=== PATIENT | female | born 1995 | race American Indian/Alaskan Native ===

== ENCOUNTER 2017-10-11 00:33 | Emergency (ER) | payer BC ==
[~2017-10-11] VITALS: Ht 160 cm; Wt 75.0 kg
[~2017-10-11 00:33] MED LIST: CYCL-1 PO; HYDR-3964 PO; NO HOME MEDS
[2017-10-11] MEDS ORDERED: ketorolac trometh. 30mg/ml inj. IM ONE (01:00)
[2017-10-11 01:24] LABS: URINE HCG NEGATIVE (NEG)
[2017-10-11 01:35] LABS: CLARITY,URINE CLEAR (Clear); COLOR,URINE YELLOW (Yellow); GLUCOSE, URINE NEGATIVE (Neg); KETONES,URINE NEGATIVE (Neg); LEUKOCYTE ESTERASE ,URINE NEGATIVE (Neg); NITRITES, URINE NEGATIVE (Neg); OCCULT BLOOD,URINE NEGATIVE (Neg); PH,URINE 7.5 (4.8-8.0); PROTEIN,URINE NEGATIVE (Neg); UROBILINOGEN,URINE 0.2 E.U/dL (0.2-1.0)
[2017-10-11 01:41] LABS: UA COLLECTION TYPE CLN CATCH MIDSTREAM
[2017-10-11 02:24] VITALS: BP 116/75
== END 2017-10-11 02:25 | disposition home or self-care (01) ==
LOC: ER 00:34
DX: R10.9 Unspecified abdominal pain (principal); Z86.73 Personal history of transient ischemic attack (TIA), and cerebral infarction without residual deficits
CPT/HCPCS: 81003; 81025; 96372; 99284; J1885

== ENCOUNTER 2019-03-23 16:29 | Emergency (ER) | payer BC ==
[~2019-03-23] VITALS: Ht 160 cm; Wt 79.0 kg
[2019-03-23 17:24] LABS: BASOPHILS # (AUTO) 0.1 X10'3 (0-0.2); BASOPHILS % (AUTO) 0.5 % (0-1); EOSINOPHILS # (AUTO) 0.1 X10'3 (0-0.9); EOSINOPHILS % (AUTO) 0.5 % (0-6); HEMATOCRIT 46.4 % (35.0-45.0); HEMOGLOBIN 16.2 g/dl (12.0-16.0); LYMPHOCYTES % (AUTO) 18.2 % (21-51); MEAN CORPUSCULAR HEMOGLOBIN 31.5 PG (27.0-31.0); MEAN CORPUSCULAR HGB CONC 34.9 g/dL (33.0-36.5); MEAN CORPUSCULAR VOLUME 90.3 FL (78-98); MEAN PLATELET VOLUME 10.6 FL (7.4-10.4); MONOCYTES # (AUTO) 0.4 X10'3 (0-0.9); MONOCYTES % (AUTO) 3.8 % (2-12); NEUTROPHILS # (AUTO) 8.6 X10'3 (1.8-7.7); PLATELET COUNT 182 X10'3 (140-440); RED BLOOD COUNT 5.14 X10'6 (4.20-5.60); RED CELL DISTRIBUTION WIDTH 12.9 % (11.5-14.5); WHITE BLOOD COUNT 11.2 X10'3 (4.5-11.0)
[2019-03-23 17:35] LABS: PARTIAL THROMBOPLASTIN TIME 30 SECONDS (22-32)
[2019-03-23 17:38] LABS: ALANINE AMINOTRANSFERASE 45 U/L (12-78); ALBUMIN 4.1 G/DL (3.4-5.0); ALBUMIN/GLOBULIN RATIO 1.1 (1.1-1.5); ALKALINE PHOSPHATASE 111 IU/L (46-116); ANION GAP 11 (8-16); ASPARTATE AMINO TRANSFERASE 18 U/L (10-37); BILIRUBIN,TOTAL 0.5 MG/DL (0.1-1.0); BLOOD UREA NITROGEN 17 MG/DL (7-18); BUN/CREATININE RATIO 26.6 (6.6-38.0); CALCIUM 8.9 MG/DL (8.5-10.1); CHLORIDE 104 MMOL/L (99-107); CREATININE 0.64 MG/DL (0.40-0.90); GLUCOSE 126 MG/DL (70-104); POTASSIUM 3.3 MMOL/L (3.5-5.1); SODIUM 139 MMOL/L (135-145); TOTAL CARBON DIOXIDE 24.5 MMOL/L (24-32); eGFR > 90 ML/MIN
[2019-03-23 18:20] LABS: LARGE PLATELETS FEW; PLATELET ESTIMATE NORMAL
[2019-03-23 18:33] VITALS: BP 122/87
== END 2019-03-23 20:39 | disposition home or self-care (01) ==
LOC: ER 16:30
DX: R00.2 Palpitations (principal); R06.02 Shortness of breath; R42 Dizziness and giddiness; F41.9 Anxiety disorder, unspecified; Z90.49 Acquired absence of other specified parts of digestive tract; Z98.890 Other specified postprocedural states; Z79.899 Other long term (current) drug therapy
CPT/HCPCS: 36415; 71045; 80053; 84484; 85025; 85610; 85730; 93005; 99284

== ENCOUNTER 2021-09-17 16:58 | Inpatient (IN) | payer BC ==
[~2021-09-17] VITALS: Ht 160 cm; Wt 74.5 kg
[2021-09-17 17:58] LABS: BASOPHILS # (AUTO) 0.1 X10'3 (0-0.2); BASOPHILS % (AUTO) 1.4 % (0-1); EOSINOPHILS # (AUTO) 0.1 X10'3 (0-0.9); EOSINOPHILS % (AUTO) 2.1 % (0-6); HEMOGLOBIN 13.9 g/dl (12.0-16.0); LYMPHOCYTES # (AUTO) 1.7 X10'3 (1.1-4.8); LYMPHOCYTES % (AUTO) 34.4 % (21-51); MEAN CORPUSCULAR HEMOGLOBIN 29.8 PG (27.0-31.0); MEAN CORPUSCULAR HGB CONC 34.6 g/dL (33.0-36.5); MEAN CORPUSCULAR VOLUME 86.1 FL (78-98); MEAN PLATELET VOLUME 9.5 FL (7.4-10.4); MONOCYTES # (AUTO) 0.3 X10'3 (0-0.9); MONOCYTES % (AUTO) 5.6 % (2-12); NEUTROPHILS # (AUTO) 2.7 X10'3 (1.8-7.7); NEUTROPHILS % (AUTO) 56.5 % (42-75); PLATELET COUNT 181 X10'3 (140-440); RED BLOOD COUNT 4.65 X10'6 (4.20-5.60); RED CELL DISTRIBUTION WIDTH 17.6 % (11.5-14.5); WHITE BLOOD COUNT 4.9 X10'3 (4.5-11.0)
[2021-09-17 18:04] LABS: D-DIMER 0.67 MG/L FEU (0-0.50)
[2021-09-17 18:07] LABS: ALANINE AMINOTRANSFERASE 89 U/L (12-78); ALBUMIN 3.8 G/DL (3.4-5.0); ALKALINE PHOSPHATASE 350 IU/L (46-116); ANION GAP 11 (8-16); ASPARTATE AMINO TRANSFERASE 25 U/L (10-37); BLOOD UREA NITROGEN 11 MG/DL (7-18); CALCIUM 9.5 MG/DL (8.5-10.1); CHLORIDE 102 MMOL/L (99-107); CREATININE 0.58 MG/DL (0.40-0.90); GLUCOSE 93 MG/DL (70-104); POTASSIUM 4.5 MMOL/L (3.5-5.1); SODIUM 139 MMOL/L (135-145); TOTAL CARBON DIOXIDE 26.1 MMOL/L (24-32); TOTAL PROTEIN 7.8 G/DL (6.4-8.2); eGFR > 90 ML/MIN
[2021-09-17 18:47] LABS: C-REACTIVE PROTEIN 2.24 MG/DL (0.0-0.5)
[2021-09-17 18:55] LABS: APTT 32 SECONDS (22-32)
[2021-09-17] MEDS ORDERED: HYDROmorphone 1 mg/ml syringe IV ONE (19:30)
[2021-09-17] MEDS ORDERED: heparin 10,000 units/1 ML INJ IV PRN (19:30)
[2021-09-17] MEDS ORDERED: heparin 25,000 UNIT/250ml bag 250 ML IV SCH (19:30)
[2021-09-17] MEDS ORDERED: ondansetron/PF 4mg/2ml inj IV ONE (19:30)
[2021-09-17] MEDS ORDERED: heparin 10,000 units/1 ML INJ IV ONE ×2 (19:30→19:35)
[2021-09-17] MEDS ORDERED: FERR-39 PO (19:37)
[2021-09-17] MEDS ORDERED: iohexol 300mg/ml 100ml inj. ONE (21:05)
[2021-09-17 21:17] LABS: LIPASE 202 U/L (73-393)
[2021-09-17] MEDS ORDERED: HYDROmorphone inj. 0.5 MG/0.5 ML DISP.SYRIN IV PRN (23:25)
[2021-09-17] MEDS ORDERED: ondansetron/PF 4mg/2ml inj IV PRN (23:25)
[2021-09-17] MEDS ORDERED: mag hydrox/Alum hydrox/simeth 30ml oral suspension PO PRN (23:25)
[2021-09-17] MEDS ORDERED: acetaminophen 325mg tablet PO PRN (23:25)
[2021-09-17] MEDS ORDERED: CADD PCA waste documentation MC PRN (23:25)
[2021-09-17] MEDS ORDERED: naloxone 0.4 mg/ml inj IV PRN (23:25)
[2021-09-17] MEDS ORDERED: magnesium 4gm in 100ml NS 100 ML IV PRN (23:25)
[2021-09-17] MEDS ORDERED: magnesium Cl slow-release 64mg tablet PO PRN (23:25)
[2021-09-17] MEDS ORDERED: potassium CL 10mEq/100ml bag 100 ML IV PRN (23:25)
[2021-09-17] MEDS ORDERED: magnesium hydroxide 30ml (MOM) UD suspension PO PRN (23:25)
[2021-09-17] MEDS ORDERED: potassium Cl 20 mEq SR tablet PO PRN ×2 (23:25)
[2021-09-17] MEDS ORDERED: magnesium 2GM in 50ml NS 50 ML IV PRN (23:25)
[2021-09-18 00:18] LABS: MAGNESIUM 1.9 MG/DL (1.5-2.4); POTASSIUM 4.1 MMOL/L (3.5-5.1)
[2021-09-18] MEDS: HYDROmorph./NS 0.2 mg/ml CADD 100 ML IV SCH ×3 (00:57→05:00)
[2021-09-18] MEDS ORDERED: normal saline 500ml IV soln 500 ML IV SCH (03:30)
[2021-09-18] MEDS ORDERED: docusate sod 100mg capsule PO SCH (08:00)
[2021-09-18] MEDS ORDERED: K and/or MAG REPLACEMENT MC SCH (08:00)
[2021-09-18] MEDS ORDERED: ferrous sulfate 325mg tablet PO SCH (08:00)
--- NOTE | 2021-09-18 08:29 | NUR ---
RECEIVED TELEPHONE VO FROM DR. OLIVERA: STOP HEPARIN START ELIQUIS 10MG PO BID NORCO 10MG TAKE 2 TABS PO Q 4 HRS PRN PAIN. WHEN ORAL NORCO STARTED DISCONTINUE DILAUDID [employer] DILAUDID 0.5MG IV Q 4 HOURS PRN BREAK THROUGH PAIN NOT RELIEVED BY NORCO
[2021-09-18] MEDS ORDERED: HYDROcodone/acetaminophen 10/325mg tab PO PRN (08:55)
[2021-09-18] MEDS ORDERED: apixaban 5mg tablet PO SCH (08:55)
[2021-09-18] MEDS ORDERED: HYDROmorphone inj. 0.5 MG/0.5 ML DISP.SYRIN IV PRN (08:55)
[2021-09-18 08:58] LABS: MAGNESIUM 1.8 MG/DL (1.5-2.4); POTASSIUM 4.1 MMOL/L (3.5-5.1)
[2021-09-18] MEDS ORDERED: CADD PCA waste documentation MC PRN (11:40)
--- NOTE | 2021-09-18 15:47 | NUR ---
Report given to YOLA Ansari on Surg Floor.
[2021-09-18 16:08] VITALS: BP 102/42
--- NOTE | 2021-09-18 16:11 | NUR ---
Patient in room [facility]. I have received report from [employer] and had the opportunity to ask questions and assume patient care. Was informed if patient could tolerate a diet and ambulation that probable discharge on this date.
--- NOTE | 2021-09-18 16:12 | NUR ---
Patient was made familiar with room after arriving on [facility]. Patient vitals taken at this time. Patient has slightly soft BP yet good MAP. Patient is verbalizing she would like to be discharged as soon as possible. Patient has child at home. Patient given clears to see if she tolerates and also walked from the [facility] to bed with no assist at this time.
--- NOTE | 2021-09-18 16:46 | NUR ---
Spoke with MD about patient condition, MD expressed criteria for patient to be discharged including decreased anxiety about discharge and recurrent pain. Patient is speaking with family at this time.
--- NOTE | 2021-09-18 18:39 | NUR ---
PAGER ID: [phone] MESSAGE: Elan Surg [id number] Re: Domingomellisa S Patient has now changed her mind her pain has not increased, and would like to go home at this time. Patient Emotional and misses her . Thanks Elan.
--- NOTE | 2021-09-18 18:43 | NUR ---
Patient in room [facility]. I have received report from Elan ACEVES and had the opportunity to ask questions and assume patient care.
--- NOTE | 2021-09-18 18:59 | NUR ---
Problems reprioritized. Patient report given, questions answered & plan of care reviewed with Lucía ACEVES.
[2021-09-18] MEDS ORDERED: APIX5TAB3 PO (19:01)
--- NOTE | 2021-09-18 19:51 | NUR ---
Pt was educated to her new prescription, when to restart her home prescriptions, when to seek help, and to follow up with her primary care physician in 1 week. A discharge packet with education and labs was signed and given to the pt. Her new prescriptions was electronically filed with her pharmacy. 2 IV's were removed and dressed, cannulas were intact. Pt changed into her clothes and collected her belongings and was taken to the main entrance where her was waiting for her. Pt had no signs of distress, VSS at the time of discharge.
[2021-09-20 11:12] LABS: PROTEIN S, FREE 72 % (61-136); PROTEIN S, TOTAL 87 % (60-150)
[2021-09-20 17:50] LABS: ANTITHROMBIN ACTIVITY 122 % (75-135); ANTITHROMBIN ANTIGEN 93 % (72-124)
[2021-09-25] MEDS ORDERED: apixaban 5mg tablet PO SCH (20:00)
== END 2021-09-18 19:42 | disposition home or self-care (01) | DRG 443 ==
LOC: ER 16:58 → UNDOADMIN 23:27 → ED HOLD 23:27 → SUR 3N 09-18 16:06 → UNDODISIN 09-18 19:42
PROVIDERS: ADMIT Internal Medicine; ATTEND Internal Medicine
PROC: BW211ZZ Computerized Tomography (CT Scan) of Abdomen and Pelvis using Low Osmolar Contrast (ICD-10-PCS; principal; 2021-09-17)
DX: I81 Portal vein thrombosis (principal); F41.9 Anxiety disorder, unspecified; Z90.49 Acquired absence of other specified parts of digestive tract; Z98.891 History of uterine scar from previous surgery; Z79.01 Long term (current) use of anticoagulants; Z80.49 Family history of malignant neoplasm of other genital organs; Z82.3 Family history of stroke; Z83.3 Family history of diabetes mellitus; Z79.899 Other long term (current) drug therapy
CPT/HCPCS: 36415; 71045; 74178; 80053; 81479; 83605; 83690; 83735; 83880; 83891; 83894; 83898; 84132; 84484; 85025; 85300; 85301; 85303; 85305; 85306; 85379; 85610; 85651; 85730; 86140; 86146; 86147; 93005; 96365; 96375; 96376; 99285; G0378; J1170; J1644; J2405; J7040; Q9967

== ENCOUNTER 2021-11-10 14:25 | Emergency (ER) | payer BC ==
[~2021-11-10] VITALS: Ht 160 cm; Wt 78.0 kg
[~2021-11-10 14:25] MED LIST changes: +APIX5TAB3 PO; -CYCL-1 PO; +FERR-39 PO; -HYDR-3964 PO; -NO HOME MEDS
[2021-11-10 14:42] VITALS: BP 119/83
[2021-11-10] MEDS ORDERED: cyclobenzaprine 10mg tablet PO ONE (15:15)
[2021-11-10] MEDS ORDERED: ketorolac tromethamine 15mg/ml inj. IM ONE (15:15)
[2021-11-10] MEDS ORDERED: CYCL-1 PO (15:40)
== END 2021-11-10 15:54 | disposition home or self-care (01) ==
LOC: ER 14:25
DX: M79.2 Neuralgia and neuritis, unspecified (principal); M62.838 Other muscle spasm; Z87.81 Personal history of (healed) traumatic fracture; Z90.49 Acquired absence of other specified parts of digestive tract; Z98.891 History of uterine scar from previous surgery; Z79.899 Other long term (current) drug therapy; Z86.718 Personal history of other venous thrombosis and embolism
CPT/HCPCS: 96372; 99283; J1885

== ENCOUNTER 2022-12-31 13:04 | Emergency (ER) | payer BC, OTHER ==
[~2022-12-31] VITALS: Ht 160 cm; Wt 80.0 kg
[~2022-12-31 13:04] MED LIST changes: +CYCL-1 PO
[2022-12-31] MEDS ORDERED: mag hydrox/Alum hydrox/simeth 30ml oral suspension PO ONE (13:15)
[2022-12-31] MEDS ORDERED: sucralfate 1 gm tablet PO ONE (13:15)
[2022-12-31] MEDS ORDERED: LIDOcaine Viscous 15ml cup MM ONE (13:15)
[2022-12-31 13:52] LABS: BASOPHILS % (AUTO) 0.4 % (0-1); EOSINOPHILS # (AUTO) 0.1 X10'3 (0-0.9); EOSINOPHILS % (AUTO) 0.8 % (0-6); HEMATOCRIT 46.2 % (35.0-45.0); HEMOGLOBIN 15.7 g/dl (12.0-16.0); LYMPHOCYTES # (AUTO) 1.4 X10'3 (1.1-4.8); LYMPHOCYTES % (AUTO) 20.4 % (21-51); MEAN CORPUSCULAR HEMOGLOBIN 30.9 PG (27.0-31.0); MEAN CORPUSCULAR VOLUME 90.7 FL (78-98); MONOCYTES # (AUTO) 0.3 X10'3 (0-0.9); MONOCYTES % (AUTO) 4.6 % (2-12); NEUTROPHILS # (AUTO) 5.1 X10'3 (1.8-7.7); NEUTROPHILS % (AUTO) 73.8 % (42-75); PLATELET COUNT 129 X10'3 (140-440); RED BLOOD COUNT 5.09 X10'6 (4.20-5.60); RED CELL DISTRIBUTION WIDTH 13.5 % (11.5-14.5); WHITE BLOOD COUNT 6.9 X10'3 (4.5-11.0)
[2022-12-31 13:54] VITALS: BP 130/79
[2022-12-31 14:07] LABS: ALANINE AMINOTRANSFERASE 45 U/L (12-78); ALBUMIN 4.4 G/DL (3.4-5.0); ALBUMIN/GLOBULIN RATIO 1.4 (1.1-1.5); ALKALINE PHOSPHATASE 93 IU/L (46-116); ANION GAP 11 (8-16); ASPARTATE AMINO TRANSFERASE 19 U/L (10-37); BILIRUBIN,TOTAL 0.5 MG/DL (0.1-1.0); BLOOD UREA NITROGEN 10 MG/DL (7-18); CALCIUM 9.1 MG/DL (8.5-10.1); CHLORIDE 104 MMOL/L (99-107); GLUCOSE 97 MG/DL (70-104); POTASSIUM 3.9 MMOL/L (3.5-5.1); SODIUM 141 MMOL/L (135-145); TOTAL CARBON DIOXIDE 26.3 MMOL/L (24-32); TOTAL PROTEIN 7.6 G/DL (6.4-8.2); eGFR > 90 ML/MIN
[2022-12-31 14:10] LABS: LIPASE 80 U/L (73-393)
[2022-12-31 15:30] LABS: URINE HCG NEGATIVE (NEG)
[2022-12-31 15:50] LABS: CLARITY,URINE SLIGHTLY CLOUDY (Clear); COLOR,URINE YELLOW (Yellow); GLUCOSE, URINE NEGATIVE (Neg); KETONES,URINE NEGATIVE (Neg); LEUKOCYTE ESTERASE ,URINE NEGATIVE (Neg); NITRITES, URINE NEGATIVE (Neg); OCCULT BLOOD,URINE NEGATIVE (Neg); PROTEIN,URINE NEGATIVE (Neg); UROBILINOGEN,URINE 0.2 E.U/dL (0.2-1.0)
[2022-12-31 16:04] LABS: UA COLLECTION TYPE CLN CATCH MIDSTREAM
[2022-12-31 16:14] LABS: BACTERIA,URINE 2+ /HPF (Neg); RBC,URINE 0-2 /HPF (0-2); SQUAMOUS EPITHELIAL CELL,UR MANY /LPF (FEW)
== END 2022-12-31 15:54 | disposition home or self-care (01) ==
LOC: ER 13:05
DX: K29.00 Acute gastritis without bleeding (principal); F41.9 Anxiety disorder, unspecified; Z79.899 Other long term (current) drug therapy
CPT/HCPCS: 36415; 71045; 80053; 81001; 81025; 83690; 84484; 85025; 93005; 99285